=== PATIENT | female | born 1995 | race African-American/Black ===

== ENCOUNTER 2021-10-06 21:34 | Emergency (ER) | payer OTHER, SELFPAY ==
[2021-10-06 21:39] VITALS: BP 127/61; PULSE 87; RESP 16; TEMP 36.6; O2SAT 100
--- NOTE | 2021-10-07 01:20 | ED.GENADULT ---
HPI - General Adult General Chief complaint: Back Pain/Injury Stated complaint: bilateral flank pain for months now. Time Seen by Provider: 10/07/21 00:51 History of Present Illness HPI narrative: Patient is a 26-year-old female here for evaluation of right-sided, atraumatic mid back pain for the past week. Patient states the pain is there all the time and denies exacerbating or alleviating factors. Reportedly she has been seen multiple times at [place] [facility] and has had a full work-up including a CT, lab work, urinalysis without clear etiology for her pain. Patient is upset because there is no clear etiology for her pain. She denies history of IV drug use. Denies fevers, nausea, vomiting, urinary symptoms, saddle anesthesia, incontinence or retention of bowel or bladder, paresthesias. She has been eating and drinking normally. Related Data Allergies Allergy/AdvReac Type Severity Reaction Status Date / Time No Known Allergies Allergy Verified 10/06/21 21:34 Review of Systems Review of Systems: Gen: Denies fevers or chills Eyes: Denies eye pain or visual change ENT: Denies congestion Respiratory: Denies shortness of breath or cough CV: Denies chest pain or palpitations GI: Denies abdominal pain nausea, emesis or diarrhea denies burning, urgency, frequency or hematuria Musculoskeletal: Reports back pain. Denies muscle pain Neuro: Denies numbness, tingling, weakness or focal weakness Skin: Denies rash Except as documented, all other systems reviewed and negative All systems reviewed & are unremarkable except as noted in HPI and below Exam Narrative: APPEARANCE: Well appearing, no pain in distress, well-nourished. Head normocephalic and atraumatic. EYES: PERRLA/EOMI, conjunctivae clear NOSE: No nasal drainage EARS: External ear normal in appearance THROAT: Oropharynx is clear. Mucous membranes are moist. NECK: Supple. No adenopathy, no masses. RESPIRATORY: Airway patent, respirations nonlabored. Clear to auscultation bilaterally, no rales, rhonchi, wheezing. CARDIOVASCULAR: Radial pulses 2+ bilaterally. Regular rate and rhythm without murmurs, rubs, or gallops. ABDOMINAL: Normoactive bowel sounds. Soft, nontender, nondistended. No rebound tenderness or guarding. MUSCULOSKELETAL: Patient able to ambulate on toes and on heels without issue or pain. Tender to palpation over right paraspinal muscles next to thoracic spine. Extremities are warm and well-perfused. Moves all extremities well. No edema. NEURO: Normal speech. No focal neurologic deficits. SKIN:: Skin is warm and dry. No rashes. PSYCHIATRIC: Normal affect/mood. Course Course Emergency Course: Patient rechecked, sleeping. Discussed at length differential diagnosis and that her presentation and exam is not concerning for acute process such as aortic dissection, epidural abscess, pneumonia, pyelonephritis. Patient upset and requested to be admitted, I explained that this is not indicated at this time. Did discuss at length importance of primary care follow-up for her back pain. Vital Signs Vital signs: Vital Signs Temperature 97.9 F 10/06/21 21:39 Pulse Rate 87 10/06/21 21:39 Respiratory Rate 16 10/06/21 21:39 Blood Pressure 127/61 10/06/21 21:39 Pulse Oximetry 100 10/06/21 21:39 Temperature 97.9 F 10/06/21 21:39 Pulse Rate 73 10/07/21 02:14 Respiratory Rate 18 10/07/21 02:14 Blood Pressure 120/75 10/07/21 02:14 Pulse Oximetry 98 10/07/21 02:14 Medical Decision Making MDM Narrative Medical decision making narrative: This patient presents with back pain most consistent with musculoskeletal spasm/strain. She is resting in the room and was able to ambulate on her heels and toes. No back pain red flags on history or physical. Presentation not consistent with malignancy (lack of history of malignancy, lack of B symptoms), fracture (no trauma, no bony tenderness to palpation), transverse myelitis, (no sensory loss, no distal weakness
[2021-10-07 01:33] VITALS: BP 105/62; PULSE 69; RESP 18; O2SAT 99
[2021-10-07] MEDS: IBUPROFEN 400 MG TABLET 800 MG PO (01:34)
[2021-10-07] MEDS: ACETAMINOPHEN 500 MG TABLET 1000 MG PO (01:34)
[2021-10-07 02:14] VITALS: BP 120/75; PULSE 73; RESP 18; O2SAT 98
--- NOTE | 2021-10-07 03:03 | PC.NURSE ---
PT STATES SHE HAS NO FRIENDS OR FAMILY TO COME PICK HER UP FROM THE ED. SHE REQUESTED A BUS PASS. NO PASSES AVAILABLE. PT STATES SHE WILL WAIT UNTIL MORNING TO GET A BUS RIDE HOME. DAYNA Jordan CHARGE NURSE AWARE.
== END 2021-10-07 02:16 | disposition home or self-care (01) ==
PROVIDERS: Emergency Provider Emergency Medicine; PCP Family Medicine
DX: S39.012A Strain of muscle, fascia and tendon of lower back, initial encounter (principal); Y33.XXXA Other specified events, undetermined intent, initial encounter
CPT/HCPCS: 99282; A9270

== ENCOUNTER 2023-06-12 16:39 | Emergency (ER) | payer OTHER, SELFPAY ==
[2023-06-12 16:41] VITALS: BP 150/89; PULSE 80; RESP 16; TEMP 36.8; O2SAT 99
[2023-06-12 17:20] LABS: Basophils Percent Auto 0.4 % (0.2-1.2); Eosinophils Absolute Auto 0.1 K/mm3 (0-0.3); Eosinophils Percent Auto 1.4 % (0-4.4); Hematocrit 32.8 % (37.0-47.0); Hemoglobin 9.5 g/dL (12.0-15.0); Immature Granulocyte Absolute 0.01 K/mm3 (0.00-0.031); Immature Granulocyte Percent A 0.1 % (0-0.5); Lymphocytes Absolute Auto 1.52 K/mm3 (0.9-3.2); Lymphocytes Percent Auto 19.4 % (18.3-44.2); Mean Corpuscular Hemoglobin 24.1 pg (26-34); Mean Platelet Volume 11.7 fl (7.4-10.4); Monocytes Absolute Auto 0.7 K/mm3 (0.1-0.6); Monocytes Percent Auto 9.5 % (2.6-8.5); Neutrophils Absolute Auto 5.4 K/mm3 (1.3-6.7); Neutrophils Percent Auto 69.2 % (45.5-73.1); Platelet Count Result 270 k/mm3 (150-375); Red Blood Count 3.95 M/mm3 (4.2-5.4); Red Cell Distribution Width 18.6 % (11.5-14.5); White Blood Count 7.8 K/mm3 (4.5-10.0)
[2023-06-12 17:27] LABS: Appearance Urine Cloudy (Clear); Bacteria Urine 1+ /hpf; Bilirubin Urine Negative (Negative); Blood Urine Negative (Negative); Color Urine Yellow (Yellow); Glucose Urine UA Negative (Negative); Ketones Urine Trace mg/dL (Negative); Leukocyte Esterase Ur Trace LEU/UL (Negative); Nitrate Urine Negative (Negative); Non Pathogenic Casts 0-2; Protein Urine Trace mg/dL (Negative); RBC Urine 0-2 /hpf (0-2); Specific Grav Ur 1.028 (1.001-1.035); Squamous Epithelial Cell Urine Moderate /hpf (Few)
[2023-06-12 17:30] LABS: Platelet Estimate Adequate (Adequate)
[2023-06-12 17:31] LABS: Anisocytosis 1+ (NORMAL); Hypochromasia 1+ (NORMAL); Ovalocytes 1+ (NORMAL); Schistocytes None Seen (NORMAL)
[2023-06-12 17:35] LABS: Acetaminophen < 10 ug/mL (10-30); Ethanol < 10 mg/dL (<10); Salicylate < 1.0 mg/dL (2-20)
[2023-06-12 17:37] LABS: Amphetamine Screen Urine Negative (Negative); Barbiturate Screen Urine Negative (Negative); Benzodiazepines Screen Urine Negative (Negative); Cannabinoid Screen Urine Negative (Negative); Cocaine Screen Urine Positive (Negative); Methadone Screen Urine Negative (Negative); Opiate Screen Urine Negative (Negative); Phencyclidine Screen Urine Negative (Negative)
[2023-06-12 17:38] LABS: Add Urine Microscopic? YES
--- NOTE | 2023-06-12 17:40 | ED.PSYCH ---
HPI - Psych General Chief Complaint: Psychiatric Symptoms Stated Complaint: psych eval Time Seen by Provider: 06/12/23 16:57 Source: patient, EMS and police Mode of arrival: EMS Limitations: no limitations History of Present Illness HPI Narrative: Patient is a 28-year-old female, with past medical history of schizophrenia and bipolar disorder, who presents the ED via EMS/PD, with report of suicidal ideation. Patient reports she was at [employer] today and the voices in her head told her to steal something. She states she has had auditory hallucinations her whole life. She is currently on Zoloft and Abilify for her schizophrenia, but denies consistent compliance with these medications. Patient states she could not help herself and had to steal something. When she was confronted by the [employer] staff, patient returned the items she stole. Once the police were on scene to give the patient a ticket, patient states she told the catering attendant to be careful around her because she may try suicide by endoscopy technican. Patient was then brought here for further evaluation. Patient does admit to saying this to the catering attendant. She states she knows herself as bipolar and did not want to snap on the catering attendant. She denies feeling suicidal currently upon my evaluation, but does admit to intermittent SI. Denies HI. Patient has previuosly been established with [facility]. States she has not been psychiatrically hospitalized in a while. Related Data Allergies Allergy/AdvReac Type Severity Reaction Status Date / Time No Known Allergies Allergy Verified 10/06/21 21:34 Review of Systems Review of Systems: CONSTITUTIONAL: Denies fever, chills, or sweats. CARDIOVASCULAR: Denies chest pain, palpitations, or edema. RESPIRATORY: Denies cough or dyspnea. GASTROINTESTINAL: Denies abdominal pain, nausea, vomiting, or diarrhea. NEUROLOGIC: Denies headache, dizziness, numbness, or weakness. PSYCHIATRIC: See HPI All systems reviewed & are unremarkable except as noted in HPI and below [facility] Social History Social History Substance use type: crack/cocaine Exam Narrative: GENERAL: Well appearing, obese with BMI of 31.1, non-toxic, in no acute distress. HEAD: Normocephalic, atraumatic. RESPIRATORY: Airway patent, respirations nonlabored. Clear to auscultation bilaterally, no rales, rhonchi, wheezing. CARDIOVASCULAR: Regular rate and rhythm. MUSCULOSKELETAL: Moves all extremities. No gross deformities. SKIN: Warm, dry, normal color. NEURO: A&O X3. Speech clear. Cranial nerves II-XII grossly intact. No ataxic movements. PSYCHIATRIC: Labile mood, poor insight, frequently changing subject. Normal interaction. Course Vital Signs Vital signs: Vital Signs Temperature 98.2 F 06/12/23 16:41 Pulse Rate 80 06/12/23 16:41 Respiratory Rate 16 06/12/23 16:41 Blood Pressure 150/89 H 06/12/23 16:41 Pulse Oximetry 99 06/12/23 16:41 Temperature 97.9 F 06/13/23 03:24 Pulse Rate 61 06/13/23 03:24 Respiratory Rate 16 06/13/23 03:24 Blood Pressure 101/55 L 06/13/23 03:24 Pulse Oximetry 97 06/13/23 03:24 MDM - Psych MDM Narrative Medical decision making narrative: Patient presented to ED after caught stealing at [employer], told police that she may attempt suicide by endoscopy technican. Patient with Hx of schizophrenia/bipolar disorder. On antipsychotics but does admit to noncompliance. Vitals stable upon arrival. Patient denying active SI upon my evaluation. ED psych workup initiated. Laboratory study showing mild anemia. No records to compare to. Patient denies any current bleeding. Potassium slightly low. Replaced orally. UA with small amount of WBC, though moderate squamous cells. Likely contaminated catch. Will send for culture. Patient without urinary symptoms. Urine drug screen positive for cocaine. 1840 - Patient medically cleared to undergo psychiatric evaluation by crisis.
[2023-06-12 17:46] LABS: Alanine Aminotransferase 22 U/L (6-35); Albumin Level 4.2 g/dL (3.5-5.1); Alkaline Phosphatase 82 U/L (38-126); Anion Gap 10 mmol/L (8-16); Aspartate Amino Transferase 25 U/L (14-36); Bilirubin,Total 0.5 mg/dL (0.2-1.3); Blood Urea Nitrogen 13 mg/dL (7-17); Carbon Dioxide 28 mmol/L (22-30); Chloride 102 mmol/L (98-107); Estimated CRCL calculation 134 ml/min; Estimated Glomerular Filt Rate > 60; Glucose 94 mg/dL (65-110); Potassium 3.2 mmol/L (3.4-5.0); Sodium 140 mmol/L (137-145)
[2023-06-12 17:58] LABS: SARS-CoV-2 RNA PCR Negative (Negative)
[2023-06-12] MEDS: POTASSIUM CHLORIDE 20 MEQ ER TABLET 40 MEQ PO (18:00)
[2023-06-12 18:04] LABS: Thyroid Stimulating Hormone 0.957 uIU/mL (0.465-4.680)
--- NOTE | 2023-06-12 19:48 | PC.NURSE ---
crisis here to evaluate pt. pt being uncooperative and stating she cant stay awake. crisis unable to do their evaluation. crisis to come back in a few hours.
--- NOTE | 2023-06-12 23:18 | PC.NURSE ---
Report received from OMER Fong. Assumed care of patient at this time.
--- NOTE | 2023-06-13 00:15 | PC.NURSE ---
Patient refusing to speak to this RN regarding columbia scale reassessment.
[2023-06-13 03:24] VITALS: BP 101/55; PULSE 61; RESP 16; TEMP 36.6; O2SAT 97
== END 2023-06-13 04:19 | disposition home or self-care (01) ==
PROVIDERS: Emergency Medicine; Emergency Provider Physician Assistant; PCP Family Medicine
DX: R45.851 Suicidal ideations (principal); F20.9 Schizophrenia, unspecified; Z59.00 Homelessness unspecified; T43.226A Underdosing of selective serotonin reuptake inhibitors, initial encounter; T43.596A Underdosing of other antipsychotics and neuroleptics, initial encounter; Z11.52 Encounter for screening for COVID-19; F31.9 Bipolar disorder, unspecified
CPT/HCPCS: 36415; 80053; 80307; 81001; 81025; 84443; 85025; 87086; 87088; 87635; 99284; A9270